=== PATIENT | female | born 1950 | race Caucasian/White ===

== ENCOUNTER → 2017-05-31 | Outpatient (CLI) | payer OTHER ==
--- NOTE | ~2017-05-31 | MY29 ---
[facility] A Service of [facility] RADIOLOGY TEXT RESULTS PATIENT: KEZIA CUELLAR LOCATION: [facility] : 54 UNIT #: [id number] AGE: [address]: Bonita Javed MD SEX: F ORDER DR: [id number] [facility] [address]. [place], [place] [address] [id number] O MR#: [id number] Acc #: [id number] NAME: KEZIA CUELLAR : 1950 SEX: F STUDY DATE/TIME: 05/31/2017 11:19 UNIT: [facility] ROOM: STUDY DESCRIPTION: MY LISA SCREENING W/ CAD BILAT Attending Physician: Bonita Javed M.D. Referring Physician: Bonita Javed M.D. Ordering Physician: Bonita Javed M.D. Primary Care Physician: Bonita Javed M.D. MEDICAL IMAGING REPORT This report is preliminary unless electronic signature is present EXAM Bilateral digital screening mammogram with CAD DATE 05/31/2017 HISTORY Family history of breast cancer in an aunt. No personal history of breast cancer or current complaints. COMPARISON Patient states previous imaging at [facility] or [facility]. Both of these facilities have been contacted, and there are no prior exams at those locations. Therefore, the current exam serves as a new baseline study. FINDINGS CC and MLO views were obtained of each breast utilizing digital technique and reviewed with an FDA-approved CAD device. Scattered fibroglandular densities are present bilaterally, greatest in the subareolar regions. No suspicious nodule, architectural distortion or clustered microcalcification is seen. IMPRESSION 1. BIRADS 2. Benign findings. Routine bilateral screening mammogram is recommended in 1 year. Patients over the age of 40 are entered into a reminder system with target due date for the next mammogram. A result letter will also be sent to the patient. BIRADS: 2 Benign Finding [facility] A Service of [facility] RADIOLOGY TEXT RESULTS PATIENT: KEZIA CUELLAR LOCATION: [facility] : 54 UNIT #: [id number] AGE: [address]: Bonita Javed MD SEX: F ORDER DR: Dictated by... Carrie Hall M.D. THIS IS AN ELECTRONICALLY VERIFIED REPORT Carrie Hall M.D. at 06/07/2017 8:36 AM LLH/amanda TD: 06/01/2017 12:28 JOB #: [id number] MEDICAL IMAGING REPORT Page 1 of 1 COPY
== END | disposition home or self-care (01) ==
LOC: CWCC 10:49
DX: Z12.31 Encounter for screening mammogram for malignant neoplasm of breast (principal); Z80.3 Family history of malignant neoplasm of breast
CPT/HCPCS: G0202